=== PATIENT | male | born 1980 | race Caucasian/White ===

== ENCOUNTER → 2020-03-18 17:23 | Outpatient (CLI) | payer OTHER, SELFPAY ==
--- NOTE | ~2020-03-18 | XR_ITS ---
EXAMINATION: XR lumbar spine 2-3V EXAM DATE: 03/18/2020 19:10 INDICATION: Thoracic and lumbar pain due to injury . Pt was cutting a tree this weekend when a branc h swung back hitting him and knocking him off a 6-8 foot ladder. TECHNIQUE: Lumber spine frontal, lateral, lateral L5-S1 projections for interpretation. There is no prior study for comparison. FINDINGS: There is mild anterior wedging of the L1 vertebral body, possible acute mild compression fr acture. Mild diffuse lumbar disc disease and facet arthropathy. Sacrum, sacroiliac joints, sacral ar jesus lines are intact. Paraspinal soft tissue is unremarkable. IMPRESSION: Mild L1 compression fracture, could be acute. Reviewed, dictated and finalized at location A.
--- NOTE | ~2020-03-18 | XR_ITS ---
EXAMINATION: XR thoracic spine 2V EXAM DATE: 03/18/2020 19:10 INDICATION: Thoracic and lumbar pain due to injury . Initial encounter. Pt was cutting a tree this w eekend when a branch swung back hitting him and knocking him off a 6-8 foot ladder. Upper and lower b ack pain. No surgery. TECHNIQUE: Frontal and lateral projections of the thoracic spine as well as lateral swimmers projecti on of the upper thoracic spine for interpretation. There is no prior study for comparison. FINDINGS: There is possible left 11th rib fracture posteriorly There is mild lower thoracic dextrosco liosis. Linear ossification appears to be bridging the mid thoracic spinous processes, possibly indic ating ankylosing spondylitis. No endplate erosive change. There are small lower thoracic Schmorl's n odes. Paraspinal soft tissue is unremarkable. IMPRESSION: 1. Possible acute left 11th rib fracture posteriorly. 2. Possible early ankylosing spondylitis. Reviewed, dictated and finalized at location A.
== END ==
PROVIDERS: PCP Emergency Medicine
DX: M54.5 Low back pain (principal); M54.6 Pain in thoracic spine
CPT/HCPCS: 72070; 72100

== ENCOUNTER 2021-08-27 08:43 | Outpatient (CLI) | payer OTHER, SELFPAY | END 2021-08-27 08:44 | disposition home or self-care (01) | LOC: ANHSURGERY 08:47 | PROVIDERS: PCP Emergency Medicine; Visit Provider Surgery | DX: K40.20 Bilateral inguinal hernia, without obstruction or gangrene, not specified as recurrent (principal); Z01.818 Encounter for other preprocedural examination | CPT/HCPCS: 36415; 86850; 86900; 86901 ==

== ENCOUNTER 2021-09-02 00:21 | Day surgery (SDC) | payer OTHER, SELFPAY ==
[2021-08-22 14:20] VITALS: BMI 28.5
--- NOTE | 2021-08-22 14:28 | PC.NURSE ---
Report to the Outpatient Waiting Room, entrance under the green pavilion located off [facility], at time 10:00 on date 09/02/21. OR Time: 12:00. - You and your visitor will be asked a series of questions to screen for COVID 19 for your protection. - A mask is required within the hospital. One visitor will be allowed to accompany the patient into the hospital. Patients visitor will be instructed to remain with patient at all times or leave the building. We will allow the visitor to come back to the postoperative area when patient is ready. Preoperative COVID Testing Requirements: No COVID Test needed if: (proof is required; if not received patient will have Rapid Test prior to entry) - Patient has received COVID Vaccine at least 14 days prior to procedure date or - Patient has positive COVID test result within last 90 days of surgery date. COVID Test needed if above criteria is not met Patients may have clear liquids (water, carbonated beverages, clear teas, apple juice) until 3 hours prior to surgery (9:00) with a maximum of 20 ounces. - No food from midnight until time of surgery Take the following medications with a SIP of water the morning of surgery: NONE Medications to discontinue per physician: VITAMINS/SUPPLEMENTS Date to take last dose: 08/29/21 Please no make-up, nail mozambican, hairspray, perfume, deodorant, or body powder the day of surgery. No jewelry (including any body piercings) or valuables the day of surgery, leave them at home. Please take a shower or bath the night before, or the morning of, surgery with an antibacterial soap. Wear comfortable, loose fitting clothing. HIBICLENS SHOWER - Jewelry must be removed prior to entering the operating room. Rings and piercings that are not removed may be cut off. - The hospital will not accept responsibility for valuables. - Please leave all valuables, including medications, at home the day of surgery. If you are going home after surgery, a licensed otr company driver must drive you home. - NO public transportation without another adult. - We recommend that an adult stay with you for 24 hours following discharge. - We also recommend that you do not drive, make important decision, drink alcoholic beverages, or take any drugs that were not prescribed by your health care provider for at least 24 hours after your discharge time. Follow any additional instructions given to you from your surgeon. Telephone instructions given to MARC MEJIA and asked if any additional questions and then verbalized understanding. Patient advised to call surgeon office or pre surgery nurse liaison [phone] if any additional questions.
[2021-09-02] VITALS (15 sets, daily range): BP systolic 111–143; BP diastolic 53–76; PULSE 64–102; RESP 12–20; TEMP 36.7–37.1; O2SAT 94–100; BMI 28.4
[2021-09-02] MEDS: ACETAMINOPHEN 500 MG TABLET 1000 MG PO (10:45)
[2021-09-02] MEDS: KETOROLAC 15 MG/ML VIAL (*BKC) IV PUSH (10:45)
[2021-09-02] MEDS: LACTATED RINGERS 1,000 ML 30 ML IV CONT ×3 (10:48→16:06)
--- NOTE | 2021-09-02 11:00 | P.PNAN_ITS ---
Anes - Initial Pre Proc Eval Procedure: Operation Date: 09/02/21 12:00 Proposed Procedures p Bilateral Laparoscopic Inguinal Hernia Repair with Mesh - Gary Siddiqi MD Date/Time: 09/02/21 11:00 Surgeon: Gary Siddiqi MD Pre Op Diagnosis: Symptomatic Lt Ing Hernia, Asymptomatic Rt Ing Her Patient Data Age: 41 Gender: M Height: 1.88 m Weight: 100.4 kg Last Vital Signs Temp 36.7 C 09/02/21 10:40 Pulse 93 09/02/21 10:40 Resp 14 09/02/21 10:40 BP 143/69 H 09/02/21 10:40 Pulse Ox 100 09/02/21 10:40 Allergies Allergy/AdvReac Type Severity Reaction Status Date / Time shellfish derived Allergy Anaphylaxis Verified 08/25/21 11:55 Home Medications Medication Instructions Recorded Confirmed Type dextroamphetamine-amphetamine 30 30 mg PO DAILY 08/20/21 08/22/21 History mg tablet multivitamin 1 tablet PO DAILY 08/22/21 08/22/21 History Patient hx anesthesia problems: none Family hx anesthesia problems: none Results Review: All pre-operative results and documents have been reviewed as part of the pre-operative evaluation. [facility] Past Medical History Medical History (Updated 09/02/21 @ 11:00 by Andi Pascal MD) ADD (attention deficit disorder) SANTI (obstructive sleep apnea) Surgical History Surgical History History of oral surgery History of surgery on arm Right arm Family History Family History Mother Thyroid disorder Father Kidney stones Other Heart disease Hypertension Kidney disease Social History Social History Smoking status: Never smoker Alcohol intake: current Alcohol use details: Occasional alcohol use (beer/wine) Substance use: unknown Substance use type: does not use Living arrangements: with family 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 Informed Consent: The patient's anesthetic plan and its attendant risks and burton efits were discussed with the patient/family/POA. Questions were solicited and answers provided to the satisfaction of the patient/family/POA.
[2021-09-02] MEDS: ceFAZolin 2 GM/D5W 50 ML 2 GM/50 ML BAG IVPB (12:00)
--- NOTE | 2021-09-02 12:06 | WPDHPUPDATE1 ---
History and Physical Update Update Date/Time: 09/02/21 12:06 History and Physical has been reviewed, including an updated exam of the patient. There are NO changes in the patient's condition. Risks, benefits, and alternatives have been discussed and questions answered. Patient agrees to proceed with procedure.
[2021-09-02] MEDS: fentaNYL CITRATE INJ (*CRX) 100 MCG/2 ML VIAL 25 MCG IV PUSH ×2 (15:10→15:14)
--- NOTE | 2021-09-02 15:16 | W.PM.PROC2 ---
Procedure Note - Detailed Date of Procedure 09/02/21 Pre-op Diagnosis Symptomatic Lt Ing Hernia, Asymptomatic Rt Ing Hernia Post-op Diagnosis Other ( Bilateral Direct inguinal hernias) Procedure Performed 1. laparoscopic totally extraperitoneal bilateral inguinal hernia repair with mesh Surgeon Gary Siddiqi MD Solar Energy Systems Engineer LILIANA Eli ,[place] registered nurse first assistant Anesthesia General Indications Bulging and pain on the left groin and a palpable weakness on the right in the standing position on exam. Findings Patient had bilateral direct inguinal hernias left larger than right. Description of Procedure After appropriate marking of the operative site prior to surgery, the patient was taken to the operating room. After induction of adequate general endotracheal anesthesia by [facility] staff, the patient was carefully prepped and draped in a sterile fashion. Law catheter was placed prior to the procedure to keep the bladder decompressed during the preperitoneal procedure. A time-out was performed confirming the procedure and site of surgery on the left and right. Following this, local anesthetic was infiltrated into the umbilical area and a vertical incision was made just below the umbilicus. I carefully dissected down to the the anterior rectus sheath on the left and then made a 1 cm vertical slit in the fascia just off the midline. The rectus muscle was retracted to left and then just in front of the posterior rectus sheath, an oval dissecting balloon was passed onto the pubic bone. This was insufflated with 40 pumps, while watching with the 0 degree laparoscope. It appeared that I was in the proper plane. Following this, the dissecting balloon was removed and replaced by a Sheriff cannula with a circular 30 cc conforming balloon. Following this, the 0 degree laparoscope was used to carefully place two 5mm [employer] slim trocars in the midline. One suprapubic and other one skilled nursing between the umbilicus and the pubic bone. Tedious dissection then occurred in the preperitoneal space exposing the Quique's ligament, the cord structures, the muscular tissue anteriorly, and the retroperitoneum. I did this on both sides. We positioned the patient 1st right side down and I did the left then we positioned left side down and I dissected out the right. On the left there was a larger definite direct space defect with a pseudo sac. The pseudo sac was pulled back in and tacked to Quique's ligament inferiorly such that it decreased the space that would occur once the mesh was placed. Subsequently I did the same thing on the right pulling the small pseudo sac in initially trying to tack it anteriorly but finding that I could tack it to Quique's ligament and would stay retracted into the preperitoneal space. Once this was done I dissected back further retroperitoneally exposing the edge of the peritoneum bilaterally. This was then able to be dissected back and we could visualize the posterior peritoneum. I then dissected up to the level of the umbilicus and both sides were ready for mesh placement. After carefully confirming all sites and that the mesh would cover the direct space, I carefully rolled the Large Left Mid 3D Bard mesh and slid this through the 12 mm trocar at the umbilical level down into the preperitoneal space. This unfurled nicely and sat nicely against the left and the other on the right groin structures. Both pieces of mesh nicely covered all spaces and it went back nicely into the preperitoneal space along the anterior-superior iliac spine on both sides. Since I had a tacker open to invert the direct space pseudosacs, I did place 3 tacks through the mesh into Quique's ligament on each side and on the right 1 medial to the epigastric vessels and 1 lateral to them anteriorly. Then on the left just two lateral to the epigastric vessels to hold the mesh in position. I took a picture of it carefully, which showed that the mesh will cover the preperit
[2021-09-02] MEDS: oxyCODONE HCL (*CRX) 5 MG TAB IR PO (17:27)
--- NOTE | 2021-09-02 18:01 | SUR.PHASEII ---
this nurse called dr barrera to inform him that pt has still not voided. this nurse did a bladder scan and it showed 271ml. Dr. barrera said to give pt another hr or two and if he still has not voided then to call dr barrera back.
--- NOTE | 2021-09-02 18:06 | SUR.PHASEII ---
report and care handed off to LILIANA miramontes
--- NOTE | 2021-09-02 18:44 | SUR.PHASEII ---
PATIENT ENCOURAGED TO DRINK FLUIDS AND TO WALK. PT SHIVERING AND FEELS SLEEPY SINCE TAKING PAIN MED. ASKING TO REST ON RECLINER WITH MONICA FARMER ON.
--- NOTE | 2021-09-02 19:46 | SUR.PHASEII ---
DR. PEREZ CALLED RE: PATIENT UNABLE TO URINATE. INSTRUCTED TO PLACE COTTON CATHETER, CALL OFFICE TOMORROW; WILL SEE UROLOGIST LATER IN THE WEEK.
[2021-09-02] MEDS: ONDANSETRON INJ 4 MG/2 ML VIAL IV PUSH (19:55)
== END 2021-09-02 20:24 | disposition home or self-care (01) ==
PROVIDERS: PCP Emergency Medicine; Visit Provider Surgery
PROC: (CPT 49650; principal; 2021-09-02 12:00)
DX: K40.20 Bilateral inguinal hernia, without obstruction or gangrene, not specified as recurrent (principal); F98.8 Other specified behavioral and emotional disorders with onset usually occurring in childhood and adolescence; G47.33 Obstructive sleep apnea (adult) (pediatric)
CPT/HCPCS: 49650; 36415; 86850; 86900; 86901; A9270; C1727; C1781; J0690; J1170; J1885; J2250; J2405; J3010; J7030; J7120

== ENCOUNTER 2023-08-19 07:48 | Day surgery (SDC) | payer OTHER, SELFPAY ==
[2023-08-02 09:01] VITALS: BMI 31.5
--- NOTE | 2023-08-19 07:39 | P.PNAN_ITS ---
Anes - Initial Pre Proc Eval Procedure: Operation Date: 08/19/23 10:00 Proposed Procedures p Diagnostic Colonoscopy - Sreedhar Hicks MD Date/Time: 08/19/23 07:39 Surgeon: Sreedhar Hicks MD Pre Op Diagnosis: External Hemorrhoids Patient Data Age: 43 Gender: M Height: 1.88 m Weight: 111.13 kg Allergies Allergy/AdvReac Type Severity Reaction Status Date / Time shellfish derived Allergy Anaphylaxis Verified 08/19/23 08:24 Home Medications Medication Instructions Recorded Confirmed Type dextroamphetamine-amphetamine 30 30 mg PO DAILY 08/20/21 08/19/23 History mg tablet (Adderall) multivitamin 1 tablet PO DAILY 08/22/21 08/19/23 History Patient hx anesthesia problems: none Family hx anesthesia problems: none Results Review: All pre-operative results and documents have been reviewed as part of the pre- operative evaluation. [facility] Past Medical History Medical History (Updated 10/15/21 @ 08:57 by Mercedez Barber) ADD (attention deficit disorder) SANTI (obstructive sleep apnea) Surgical History Surgical History (Updated 10/15/21 @ 08:43 by Mercedez Marion) History of bilateral inguinal hernia repair Laparoscopic totally extraperitoneal bilateral inguinal hernia repair with mesh 09/12/21 History of oral surgery History of surgery on arm Right arm Family History Family History Mother Thyroid disorder Father Kidney stones Other Heart disease Hypertension Kidney disease Social History Social History Smoking status: Never smoker Alcohol intake: current Alcohol use details: 2/MONTH Substance use: never Substance use type: does not use Living arrangements: with family Occupation/Education: occupation 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 Gender identity (if verbalized by the patient): Male Sexual Orientation (if Verbalized by the Patient): Straight or Heterosexual Spiritual care concerns: No Anes - Eval Final PreProcedure Day of Procedure 08/19/23 07:39 Patient weight: obese Heart: regular rate and rhythm Lungs: clear to auscultation Airway: Mallampati scale class II Neurological: alert and oriented Last oral intake: >/= 8 hours ASA classification: III Emergent: no Anesthetic plan: proceed Anesthesia type and monitoring: general GIVS and standard monitoring Results Review: All pre-operative results and documents have been reviewed as part of the pre- operative evaluation. Informed Consent: The patient's anesthetic plan and its attendant risks and benefits were discussed with the patient/family/POA. Questions were solicited and answers provided to the satisfaction of the patient/family/POA.
[2023-08-19 08:34] VITALS: BP 135/69; PULSE 72; RESP 18; TEMP 36.6; O2SAT 100; BMI 30.3
[2023-08-19] MEDS: LACTATED RINGERS 1,000 ML 150 ML IV CONT (08:46)
--- NOTE | 2023-08-19 09:25 | P.HP_ITS ---
History of Present Illness History of Present Illness Consent: Risks, benefits, and alternatives have been discussed and questions answered. Patient agrees to proceed with procedure. Chief complaint: External Hemorrhoids Narrative: Afshin Jackson is a 43 year old male referred for colonoscopy. Patient desires neoplasia screening. He has known hemorrhoids over the last 5-8 years. He has intermittent rectal pain sleep told he had hemorrhoids. Family history is noncontributory. Review of Systems Review of Systems: Review of Systems noncontributory. REPLACED BY [facility] Past Medical History Medical History (Updated 08/19/23 @ 09:26 by Sreedhar Hicks MD) ADD (attention deficit disorder) SANTI (obstructive sleep apnea) Surgical History Surgical History (Updated 10/15/21 @ 08:43 by Mercedez Marion) History of bilateral inguinal hernia repair Laparoscopic totally extraperitoneal bilateral inguinal hernia repair with mesh 09/12/21 History of oral surgery History of surgery on arm Right arm Family History Family History Mother Thyroid disorder Father Kidney stones Other Heart disease Hypertension Kidney disease Social History Social History Smoking status: Never smoker Alcohol intake: current Alcohol use details: 2/MONTH Substance use: never Substance use type: does not use Living arrangements: with family Occupation/Education: occupation 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 Gender identity (if verbalized by the patient): Male Sexual Orientation (if Verbalized by the Patient): Straight or Heterosexual Spiritual care concerns: No Meds Home Medications and Allergies Home Medications Medication Instructions Recorded Confirmed Type dextroamphetamine-amphetamine 30 30 mg PO DAILY 08/20/21 08/19/23 History mg tablet (Adderall) multivitamin 1 tablet PO DAILY 08/22/21 08/19/23 History Allergies Allergy/AdvReac Type Severity Reaction Status Date / Time shellfish derived Allergy Anaphylaxis Verified 08/19/23 08:24 Vital Signs Vital Signs - 24 hr 08/19/23 08:34 Temperature 97.8 F Pulse Rate 72 Respiratory Rate 18 Blood Pressure 135/69 Pulse Oximetry 100 Oxygen Delivery Room Air Exam Narrative: Physical exam reveals patient to be alert vital signs stable. HEENT exam is unr emarkable. Patient is anicteric. Lungs are clear to auscultation and percussion is without murmur or extra sounds. Abdomen bowel sounds are present soft nontender with no organomegaly. Digital external rectal exam normal. Assessment and Plan Assessment and plan (1) Rectal pain: Code(s): K62.89 - Other specified diseases of anus and rectum Status: Acute Assessment and Plan: Patient with rectal pain. Likely related to hemorrhoids. Anal fissure cannot be excluded. Given his age screening colonoscopy is advised. Further recommendations will be given after endoscopy. Patient should continue stool softener such as Metamucil will medications such as Anusol. Recticare may also be some help for rectal pain. Conditions will be given after endoscopy.
[2023-08-19 10:27] VITALS: BP 108/69; PULSE 91; RESP 20; O2SAT 100
[2023-08-19 10:37] VITALS: BP 117/67; PULSE 76; RESP 20; O2SAT 100
[2023-08-19 10:47] VITALS: BP 113/67; PULSE 74; RESP 18; O2SAT 99
--- NOTE | 2023-08-19 11:11 | WPDANESPN ---
Anes - Prog Note Post-Op Date/Time: 08/19/23 11:11 Cardiovascular status: normal Respiratory status: normal Airway patency: baseline Mental status: baseline Post-Op hydration status: normal Vital Signs: Last Vital Signs Temp 36.6 C 08/19/23 08:34 Pulse 74 08/19/23 10:47 Resp 18 08/19/23 10:47 BP 113/67 08/19/23 10:47 Pulse Ox 99 08/19/23 10:47 O2 Del Method Room Air 08/19/23 10:47 Pain Score (VAS): 0 I/O: Intake & Output 08/18/23 08/19/23 08/19/23 23:59 07:59 15:59 Intake Total 750 Balance 750 Post-procedural complaints: none Patient Feedback: Patient satisfied with anesthetic care. Other Findings: Patient vital signs back to baseline. Patient denies nausea and vomiting. Patient's pain under control. Patient OK for discharge.
== END 2023-08-19 10:53 | disposition home or self-care (01) ==
PROVIDERS: PCP Emergency Medicine; Visit Provider Internal Medicine Gastroenterology
PROC: 0DJD8ZZ Inspection of Lower Intestinal Tract, Via Natural or Artificial Opening Endoscopic (ICD-10-PCS; CPT 45378; principal; 2023-08-19 10:00)
DX: Z12.11 Encounter for screening for malignant neoplasm of colon (principal); K62.5 Hemorrhage of anus and rectum; K64.8 Other hemorrhoids
CPT/HCPCS: 45378